=== PATIENT | female | born 1940 | race Hispanic/Latino ===

== ENCOUNTER 2017-04-14 17:06 | Emergency (ER) | payer MEDICARE ==
[2017-04-14] MEDS ORDERED: Ondansetron HCl/PF 4 MG/2 ML Vial ONE (18:08)
[2017-04-14] MEDS ORDERED: Fentanyl 100 MCG/2 ML VIAL ONE (18:08)
[2017-04-14 18:10] LABS: #Basophils 0.1 thou/uL (0.0-0.2); #Eosinphils 0.2 thou/uL (0.0-0.7); #Lymphocytes 2.8 thou/uL (1.20-3.40); #Monocytes 0.8 thou/uL (0.11-0.59); #Neutrophils 6.9 thou/uL (1.40-6.50); %Basophils 0.5 % (0.0-1.0); %Eosinophils 1.9 % (0.0-10.0); %Monocytes 7.6 % (0.0-10.0); %Neutrophils 63.9 % (42.0-75.0); Hemoglobin 12.1 g/dL (12.0-16.0); Mean Corpuscular HGB CONC 35.3 g/dL (32.0-36.0); Mean Corpuscular Hemoglobin 32.1 pg (27.0-31.0); Mean Corpuscular Volume 91.1 fl (81.0-99.0); Mean Platelet Volume 6.7 fL (7.4-10.4); Platelet Count 318 thou/uL (130-400); RBC Distribution Width 11.6 % (11.5-14.5); Red Blood Cell (RBC) Count 3.76 mill/uL (4.20-5.40); White Blood Cell (WBC) Count 10.7 thou/uL (4.8-10.8)
[2017-04-14 18:22] LABS: Troponin I Less than 0.010 ng/mL (< 0.028)
[2017-04-14 18:29] LABS: ALT (SGPT) 19 U/L (8-55); AST (SGOT) 18 U/L (5-34); Albumin 4.1 g/dL (3.4-4.8); Alkaline Phosphatase 82 U/L (40-150); Anion Gap 10 mmol/L (10-20); BUN (Urea Nitrogen) 11 mg/dL (9.8-20.1); Bilirubin, Total 0.3 mg/dL (0.2-1.2); Calc. Creatinine Clearance 0 mL/min (70-130); Calcium 9.5 mg/dL (7.8-10.44); Carbon Dioxide 25 mmol/L (23-31); Chloride 99 mmol/L (98-107); Estimated GFR-MDRD 74; Glucose 108 mg/dL (83-110); Lipase 25 U/L (8-78); Potassium 4.4 mmol/L (3.5-5.1); Protein, Total 6.1 g/dL (6.0-8.3); Sodium 130 mmol/L (136-145)
[2017-04-14] MEDS ORDERED: Mag-Al 1200 mg/1200 mg/30 ML UDCUP ONE (18:58)
[2017-04-14] MEDS ORDERED: Lidocaine Viscous Sol 2% 15 ml UD Cup ONE (18:58)
[2017-04-14 19:11] LABS: Bilirubin Negative (Negative); Blood, Urine Negative (Negative); Clarity CLEAR (Clear); Glucose, Urine (Dipstick) Negative (Negative); Leukocyte Small (Negative); Nitrite Negative (Negative); Protein, Urine (Dipstick) Negative (Neg-Trace); Specific Gravity, Urine 1.011 (1.002-1.036); Urobilinogen 0.2 mg/dL (0.2-1.0); pH, Urine 7.5 (5.0-9.0)
[2017-04-14 19:13] LABS: Bacteria/HPF None Seen HPF (None Seen); Hyaline Casts/LPF 0-3 HYALINE CAST LPF (0-3 Hyaline); Pathc Cast-AUWi Flag 0.13 (0-2.49); RBC/HPF 0-3 HPF (0-3); Squamous Epithelial None Seen HPF (0-3)
--- NOTE | 2017-04-14 20:18 | ULT ---
RIGHT UPPER QUADRANT ULTRASOUND 04/14/17 HISTORY: Periumbilical and epigastric pain with nausea and diarrhea on and off for one week. FINDINGS: The visualized portions of the pancreas, visualized portions of the IVC, gallbladder, and right kidne y demonstrate a normal sonographic appearance. The right kidney measures 9.7 cm in length. The common duct measures 0.3 cm in diameter which is within normal limits. The liver is at the upper limits of normal in size but otherwise has a normal sonographic appearance. IMPRESSION: No gallbladder calculi visualized. The common duct is normal in caliber. POS: [facility]
--- NOTE | 2017-04-14 22:31 | CT ---
CT ABDOMEN AND PELVIS WITH IV CONTRAST 04/14/17 HISTORY: Periumbilical and epigastric pain with nausea and diarrhea on and off for one week. COMPARISON: None available. FINDINGS: There is mild bibasilar atelectasis. There is a hiatal hernia with the fundus of the stomach above the level of the hemidiaphragms. The li ed, spleen, pancreas, bilateral adrenal glands, kidneys, and urinary bladder demonstrate a normal CT appearance. Portal veins are patent. Vascular calcifications are seen in the abdominal aorta and iliac arteries. The uterus is not visualized probably related to hysterectomy. There is colonic diverticulosis without CT findings to suggest diverticulitis. There is mild thickeni ng in the region of the transverse colon which may be related to incomplete distention of the colon i n this region as opposed to colitis as no pericolonic inflammatory changes are seen. However, given p mireya's history of pain and diarrhea, colitis whether infectious or inflammation in etiology is a po ssibility. The appendix is visualized and normal in caliber and filled with contrast. No free fluid, fluid collection or lymphadenopathy is seen in the abdomen or pelvis. IMPRESSION: 1. Suggested thickening involving the transverse colon. This could be related to incomplete dist ention, but other areas of the colon are also decompressed and do not appear thickened. This may be r elated to colitis whether infectious or inflammatory in etiology. 2. No CT evidence of appendicitis. 3. Hiatal hernia. 4. Colonic diverticulosis. 5. Hysterectomy. POS: [facility]
== END 2017-04-14 22:55 | disposition home or self-care (01) ==
LOC: ERS 17:06
DX: K52.9 Noninfective gastroenteritis and colitis, unspecified (principal); I10 Essential (primary) hypertension; E78.5 Hyperlipidemia, unspecified; Z79.899 Other long term (current) drug therapy
CPT/HCPCS: 36415; 74177; 76705; 80053; 81003; 81015; 83605; 83690; 84484; 85025; 93005; 96361; 96374; 96375; J1980; J2405; J3010

== ENCOUNTER 2017-04-25 14:12 | Outpatient (CLI) | payer MEDICARE | END 2017-04-25 14:13 | disposition home or self-care (01) | LOC: BICMAMMO 14:12 | PROVIDERS: ATTEND Internal Medicine | DX: Z12.31 Encounter for screening mammogram for malignant neoplasm of breast (principal); Z80.3 Family history of malignant neoplasm of breast | CPT/HCPCS: 77063; 77067 ==

== ENCOUNTER 2017-11-01 09:18 | Outpatient (CLI) | payer MEDICARE | END 2017-11-01 09:19 | disposition home or self-care (01) | LOC: BICMAMMO 09:18 | PROVIDERS: ATTEND Internal Medicine | DX: Z13.820 Encounter for screening for osteoporosis (principal); Z78.0 Asymptomatic menopausal state; M81.0 Age-related osteoporosis without current pathological fracture; M85.852 Other specified disorders of bone density and structure, left thigh | CPT/HCPCS: 77080 ==

== ENCOUNTER 2018-04-26 12:43 | Outpatient (CLI) | payer MEDICARE ==
--- NOTE | 2018-05-06 13:18 | MMO ---
Bilateral MAMMO Bilat Screen [facility]. CLINICAL HISTORY: Patient is 78 years old and is seen for screening. The patient has the following family history of breast cancer: mother, at age 42. The patient has no personal history of cancer. VIEWS: The views performed were: bilateral craniocaudal with tomosynthesis and bilateral mediolateral oblique with tomosynthesis. FILMS COMPARED: The present examination has been compared to prior imaging studies performed at [facility] on 02/20/2008, 02/25/2009, 02/25/2010, 03/06/2011, 03/04/2012, 03/14/2013, 04/07/2014, 04/21/2015, 04/21/2016 and 04/25/2017, and at [facility] on 02/13/2007 and 02/21/2007. MAMMOGRAM FINDINGS: There are scattered fibroglandular densities. Benign calcifications are noted bilaterally. There are no suspicious masses, calcifications or areas of architectural distortion. IMPRESSION: FINDINGS IN BOTH BREASTS ARE BENIGN. A ROUTINE FOLLOW-UP MAMMOGRAM IN 1 YEAR IS RECOMMENDED. THE RESULTS OF THIS EXAM WERE SENT TO THE PATIENT. ACR BI-RADS Category 2 - Benign finding MAMMOGRAPHY NOTE: 1. A negative mammogram report should not delay a biopsy if a dominant of clinically suspicious mass is present. 2. Approximately 10% to 15% of breast cancers are not detected by mammography. 3. Adenosis and dense breasts may obscure an underlying neoplasm.
== END 2018-04-26 12:44 | disposition home or self-care (01) ==
LOC: BICMAMMO 12:43
PROVIDERS: ATTEND Internal Medicine
DX: Z12.31 Encounter for screening mammogram for malignant neoplasm of breast (principal); Z80.3 Family history of malignant neoplasm of breast
CPT/HCPCS: 77063; 77067

== ENCOUNTER 2019-07-09 12:07 | Outpatient (CLI) | payer MEDICARE ==
--- NOTE | 2019-07-09 15:46 | MMO ---
Bilateral MAMMO Bilat Screen [facility]. CLINICAL HISTORY: Patient is 79 years old and is seen for screening. The patient has the following family history of breast cancer: mother, at age 42. The patient has no personal history of cancer. VIEWS: The views performed were: bilateral craniocaudal with tomosynthesis and bilateral mediolateral oblique with tomosynthesis. FILMS COMPARED: The present examination has been compared to prior imaging studies performed at [facility] on 04/21/2016, 04/25/2017 and 04/26/2018. This study has been interpreted with the assistance of computer-aided detection. MAMMOGRAM FINDINGS: There are scattered fibroglandular densities. Benign calcifications are noted bilaterally. There are no suspicious masses, suspicious calcifications, or new areas of architectural distortion. IMPRESSION: THERE IS NO MAMMOGRAPHIC EVIDENCE OF MALIGNANCY. A ROUTINE FOLLOW-UP MAMMOGRAM IN 1 YEAR IS RECOMMENDED. THE RESULTS OF THIS EXAM WERE SENT TO THE PATIENT. ACR BI-RADS Category 2 - Benign finding MAMMOGRAPHY NOTE: 1. A negative mammogram report should not delay a biopsy if a dominant of clinically suspicious mass is present. 2. Approximately 10% to 15% of breast cancers are not detected by mammography. 3. Adenosis and dense breasts may obscure an underlying neoplasm. Reported by: KAELYN LEONG MD Electonically Signed: [id number]
== END 2019-07-09 12:08 | disposition home or self-care (01) ==
LOC: BICMAMMO 12:07
PROVIDERS: ATTEND Obstetrics & Gynecology
DX: Z12.31 Encounter for screening mammogram for malignant neoplasm of breast (principal); Z80.3 Family history of malignant neoplasm of breast
CPT/HCPCS: 77063; 77067

== ENCOUNTER 2019-12-11 09:17 | Outpatient (CLI) | payer MEDICARE ==
--- NOTE | 2019-12-11 11:00 | BD ---
DEXA BONE DENSITY STUDY: Date: 12/11/2019 HISTORY: 79-year-old postmenopausal female for screening. FINDINGS: Lumbar Spine: BMD (g/cm2) L1 0.875 T-Score: -1.0 L2 0.784 T-Score: -2.2 L3 0.859 T-Score: -2.0 L4 0.964 T-Score: -2.7 L1-L4 0.821 T-Score: -2.1 Femoral Neck: 0.626 T-Score: -2.0 Total Femur: 0.809 T-Score: -1.1 IMPRESSION: Osteopenia. POS: [facility]
== END 2019-12-11 09:18 | disposition home or self-care (01) ==
LOC: BICMAMMO 09:17
PROVIDERS: ATTEND Internal Medicine
DX: M81.0 Age-related osteoporosis without current pathological fracture (principal); M85.89 Other specified disorders of bone density and structure, multiple sites
CPT/HCPCS: 77080

== ENCOUNTER 2020-04-18 13:25 | Emergency (ER) | payer MEDICARE ==
[2020-04-18 14:25] LABS: #Basophils 0.1 thou/uL (0.0-0.2); #Eosinphils 0.1 thou/uL (0.0-0.7); #Lymphocytes 2.6 thou/uL (1.20-3.40); #Monocytes 0.6 thou/uL (0.11-0.59); #Neutrophils 5.5 thou/uL (1.40-6.50); %Basophils 0.9 % (0.0-1.0); %Lymphocytes 29.4 % (21.0-51.0); %Monocytes 6.4 % (0.0-10.0); %Neutrophils 62.3 % (42.0-75.0); Hemoglobin 12.6 g/dL (12.0-16.0); Mean Corpuscular HGB CONC 34.6 g/dL (32.0-36.0); Mean Corpuscular Hemoglobin 31.4 pg (27.0-31.0); Mean Corpuscular Volume 90.6 fL (78.0-98.0); Platelet Count 285 thou/uL (130-400); RBC Distribution Width 11.5 % (11.5-14.5); White Blood Cell (WBC) Count 8.8 thou/uL (4.8-10.8)
[2020-04-18 14:46] LABS: ALT (SGPT) 17 U/L (8-55); AST (SGOT) 20 U/L (5-34); Albumin 4.3 g/dL (3.4-4.8); Alkaline Phosphatase 52 U/L (40-110); Anion Gap 12 mmol/L (10-20); BUN (Urea Nitrogen) 7 mg/dL (9.8-20.1); Bilirubin, Total 0.5 mg/dL (0.2-1.2); Calc. Creatinine Clearance 0 mL/min (70-130); Calcium 9.4 mg/dL (7.8-10.44); Carbon Dioxide 27 mmol/L (23-31); Chloride 94 mmol/L (98-107); Globulin 2.3 g/dL (2.4-3.5); Glucose 107 mg/dL (83-110); Potassium 4.5 mmol/L (3.5-5.1); Protein, Total 6.6 g/dL (5.8-8.1); Sodium 128 mmol/L (136-145)
[2020-04-18] MEDS ORDERED: Ondansetron PF 4 MG/2 ML Vial ONE (15:38)
[2020-04-18] MEDS ORDERED: Ketorolac Tromethamine 30 MG/ML VIAL ONE (15:38)
[2020-04-18] MEDS ORDERED: cefTRIAXone\\ROCEPHIN 1 GM VIAL ONE (15:38)
[2020-04-18 15:43] LABS: Bilirubin Negative (Negative); Blood, Urine Negative (Negative); Clarity Clear (Clear); Glucose, Urine (Dipstick) Normal (Negative); Ketone, Urine Negative (Negative); Leukocyte 250 Leu/uL (Negative); Nitrite 1+ (Negative); Protein, Urine (Dipstick) Negative (Neg-Trace); RBC/HPF 0-3 HPF (0-3); Specific Gravity, Urine 1.013 (1.002-1.036); Squamous Epithelial 0-3 HPF (0-3); Urobilinogen Normal mg/dL (Less than 2); pH, Urine 7.5 (5.0-9.0)
[2020-04-18 15:44] LABS: Bacteria/HPF 1+ HPF (None Seen)
[2020-04-18 16:05] LABS: Lipase 32 U/L (8-78)
[2020-04-18 16:06] LABS: CK (CPK) 86 U/L (29-168)
== END 2020-04-18 17:24 | disposition home or self-care (01) ==
LOC: ERS 13:25
DX: N30.00 Acute cystitis without hematuria (principal); I10 Essential (primary) hypertension; E78.5 Hyperlipidemia, unspecified; Z79.899 Other long term (current) drug therapy
CPT/HCPCS: 36415; 74176; 80053; 81003; 81015; 82550; 83605; 83690; 85025; 87086; 93005; 94760; 96374; 96375; J0696; J1885; J2405

== ENCOUNTER 2020-07-15 09:42 | Outpatient (CLI) | payer MEDICARE | END 2020-07-15 09:43 | disposition home or self-care (01) | LOC: BICMAMMO 09:42 | PROVIDERS: ATTEND Internal Medicine | DX: Z12.31 Encounter for screening mammogram for malignant neoplasm of breast (principal); Z80.3 Family history of malignant neoplasm of breast | CPT/HCPCS: 77063; 77067 ==

== ENCOUNTER 2021-02-23 09:52 | Outpatient (CLI) | payer MEDICARE | END 2021-02-23 09:53 | disposition home or self-care (01) | LOC: BICRAD 09:52 | PROVIDERS: ATTEND Internal Medicine | DX: R05.9 Cough, unspecified (principal) | CPT/HCPCS: 71046 ==

== ENCOUNTER 2021-03-28 10:25 | Outpatient (CLI) | payer MEDICARE | END 2021-03-28 10:26 | disposition home or self-care (01) | LOC: BICRAD 10:25 | PROVIDERS: ATTEND Internal Medicine | DX: R05.9 Cough, unspecified (principal); K44.9 Diaphragmatic hernia without obstruction or gangrene | CPT/HCPCS: 71046 ==

== ENCOUNTER 2021-07-18 10:06 | Outpatient (CLI) | payer MEDICARE | END 2021-07-18 10:07 | disposition home or self-care (01) | LOC: BICMAMMO 10:06 | PROVIDERS: ATTEND Internal Medicine | DX: Z12.31 Encounter for screening mammogram for malignant neoplasm of breast (principal); Z80.3 Family history of malignant neoplasm of breast | CPT/HCPCS: 77063; 77067 ==

== ENCOUNTER 2022-05-10 09:46 | Outpatient (CLI) | payer MEDICARE | END 2022-05-10 09:47 | disposition home or self-care (01) | LOC: BICMAMMO 09:46 | PROVIDERS: ATTEND Internal Medicine | DX: Z13.820 Encounter for screening for osteoporosis (principal); Z78.0 Asymptomatic menopausal state; M81.0 Age-related osteoporosis without current pathological fracture; M85.89 Other specified disorders of bone density and structure, multiple sites | CPT/HCPCS: 77080 ==

== ENCOUNTER 2023-08-13 11:03 | Outpatient (CLI) | payer MEDICARE | END 2023-08-13 11:04 | disposition home or self-care (01) | LOC: BICRAD 11:03 | PROVIDERS: ATTEND Internal Medicine | DX: M54.50 Low back pain, unspecified (principal); R10.9 Unspecified abdominal pain; M47.816 Spondylosis without myelopathy or radiculopathy, lumbar region | CPT/HCPCS: 72100; 74018; 81001; 87086 ==

== ENCOUNTER 2023-12-18 09:52 | Outpatient (CLI) | payer MEDICARE | END 2023-12-18 09:53 | disposition home or self-care (01) | LOC: BICMAMMO 09:52 | PROVIDERS: ATTEND Internal Medicine Rheumatology | DX: M81.0 Age-related osteoporosis without current pathological fracture (principal); M85.89 Other specified disorders of bone density and structure, multiple sites | CPT/HCPCS: 77080 ==